=== PATIENT | female | born 1935 | race Caucasian/White ===

== ENCOUNTER 2018-01-17 15:56 | Observation (INO) | payer MEDICARE ==
[2018-01-17 16:21] LABS: BASOPHIL % 0.1 % (0.0-0.4); Basophil (Absolute #) 0.02 (0-0.4); Eosinophil % 0.1 % (0.00-5.0); Eosinophil (Absolute #) 0.01 (0-0.5); Granulocyte Absolute (ANC) 11.98 (1.4-6.9); Granulocytes % 82.2 % (36.0-66.0); Hematocrit 45.4 % (35-47); Hemoglobin 15.4 gm/dl (12.0-16.0); Lymphocyte (Absolute #) 1.86 (1.0-4.6); Lymphocytes % 12.7 % (24.0-44.0); Mean Cell Volume 86.3 fl (78-100); Mean Corpuscular Hemoglobin 29.3 pg (26-32); Mean Corpuscular Hgb Concent. 33.9 g/dl (32-36); Mean Platelet Volume 8.9 fl (6-9.5); Monocyte (Absolute #) 0.72 (0.0-1.3); Monocytes % 4.9 % (0.0-12.0); Platelet Count 362 K/mm3 (150-450); Red Blood Count 5.26 M/mm3 (4.1-5.4); Red Cell Distribution Width 13.3 % (11.5-14.0); White Blood Count 14.6 K/mm3 (4.0-10.5)
--- NOTE | 2018-01-17 16:25 | XRAY ---
Indication: Facial drooping. Left facial tingling/numbness. Multiple contiguous axial images obtained through the head without contrast. Comparison: None Age-appropriate global atrophy and mild periventricular degenerative micro-ischemia bilaterally. Anterior left temporal lobe demonstrates focal 1.8 x 2.5 cm cortical/subcortical hypoattenuation, possible cytotoxic edema. Posterior left parietal lobe near the vertex demonstrates 1 cm extra-axial slightly dense lesion, possible hemangioma. No acute hemorrhage, abnormal extra-axial fluid collection, or mass effect. Fourth ventricle is midline without hydrocephalus. Bony calvarium intact. Mild mucosal thickening of both ethmoid sinuses, right greater than left. Visualized mastoid air cells are clear. Impression: 1. Anterior left temporal lobe focal cortical/subcortical hypoattenuation, possible cytotoxic edema as seen in acute ischemia. MRI may further information. 2. Suspect small left posterior parietal hemangioma. MRI with contrast could confirm. 3. No acute intracranial hemorrhage. 4. Normal aging brain including atrophy and degenerative micro-ischemia. 5. Mild paranasal sinus disease. CTDI 68.51
[2018-01-17 16:33] LABS: ALBUMIN 4.4 g/dL (3.5-5.0); ALKALINE PHOSPHATASE 86 U/L (38-126); ANION GAP 13.5 MEQ/L (5-15); BLOOD UREA NITROGEN 12 mg/dL (7-17); CHLORIDE 102 mmol/L (98-107); Carbon Dioxide 26 mmol/L (22-30); Glucose 154 mg/dL (74-106); Potassium 3.6 mmol/L (3.5-5.1); SGOT/AST 26 U/L (14-36); SGPT/ALT 16 U/L (0-35); SODIUM 138 mmol/L (137-145)
--- NOTE | 2018-01-17 16:39 | ERPHSYRPT ---
- History of Present Illness Time Seen by Provider: 01/17/18 16:24 Source: patient Exam Limitations: no limitations Patient Subjective Stated Complaint: pt was found on floor at home about 0900 or 1000 this morning, she states she was trying to get to bathroom and fell, and states she hit her head, no loc, pt arrived per ambulance Triage Nursing Assessment: pt alert, has facial drooping to right side, loin trimmer equal, oriented, speech slightly slurred, was given was given 2 asa before arrival before arrival Physician History: 82-year-old white female with history of high blood pressure, lung cancer, diabetes type 2, arrives with complaint that the patient had a left facial droop. Patient apparently fell at approximately 9:00 this morning was found by her son about 3:00 noted to have a left facial droop. Patient states she hit her head she initially said she had no neck pain she tells me that she always has neck pain. She had no loss of consciousness. Patient is alert oriented she has slightly slurry speech. She states she is able to move her arms. Initially with a left facial droop on reevaluation patient appears to not have a facial droop she is able to show me her teeth is able to wrinkle her forehead she does have a left pronator drift however she has bilateral loin trimmer 5 over 5 full range of motion of her extremities and she can perform [id number] with both hands. Her daughter states that the patient had a left-sided weakness about a week ago , and was evaluated for this. Patient's daughter also states that the patient was given 2 baby aspirin prior to arrival. Past medical history includes lung cancer, high blood pressure, diabetes type 2. Past surgical history includes upper and middle lobe of the right lung removed, and hysterectomy. Timing/Duration: today (fell at 9:00 remained on floor until son arrived she was onat 3:00 pm and noted facial droop) Severity: mild Modifying Factors: Improves With: nothing Associated Symptoms: No nausea, No vomiting, No abdominal pain, No shortness of breath, No heartburn, No diaphoresis, No cough, No chills, No chest pain, No fever, No headaches, No loss of appetite, No malaise, No rash, No syncope, No seizure, No weakness Allergies/Adverse Reactions: No Known Drug Allergies Allergy (Unverified 01/17/18 16:34) Home Medications: Amlodipine Besylate 5 mg DAILY 01/17/18 [History] Fenofibrate,Micronized 145 mg* [Tricor 145 MG] 145 mg DAILY 01/17/18 [History ] Hx Tetanus, Diphtheria Vaccination/Date Given: No Hx Influenza Vaccination/Date Given: Yes Hx Pneumococcal Vaccination/Date Given: Yes Immunizations Up to Date: No - Review of Systems Constitutional: Other (pain posterior head), No Fever, No Chills Eyes: No Symptoms Ears, Nose, & Throat: No Symptoms, No Ear Pain, No Ear Discharge, No Hearing Changes, No Tinnitus, No Nose Pain, No Nose Congestion, No Nose Discharge, No Sinus Drainage, No Epistaxis, No Mouth Pain, No Mouth Swelling, No Loose Teeth, No Throat Pain, No Throat Swelling, No Hoarse, No Painful Swallowing, No Snoring , No Stridor Respiratory: No Cough, No Dyspnea Cardiac: No Chest Pain, No Edema, No Syncope Abdominal/Gastrointestinal: No Abdominal Pain, No Nausea, No Vomiting, No Diarrhea Genitourinary Symptoms: No Dysuria Musculoskeletal: Neck Pain (patient told nurse no pain in her neck, patient states she always has pain in her neck), No Back Pain Skin: No Rash Neurological: Other (patient noted to have left facial droop by family members, slightly slurry speech) Psychological: No Symptoms Endocrine: No Symptoms All Other Systems: Reviewed and Negative - Past Medical History Pertinent Past Medical History: Yes Neurological History: No Pertinent History Cardiac History: Hypertension Respiratory History: Lung Cancer Endocrine Medical History: No Pertinent History Musculoskeletal History: Osteoarthritis Other Medical History: History of lung CA, two lobes removed from R in 2006. - Past Surgical History Past Surgical History: No - Social History Smoking Status: Never smoker Exposure to second hand smoke: No Drug Use: none Patient Lives Alone: No - Female History Hx Last Menstrual Period: post - Nursing Vital Signs Nursing Vital Signs: Initial Vital Signs Temperature 97.0 F 01/17/18 16:24 Pulse Rate 69 01/17/18 16:24 Respiratory Rate 18 01/17/18 16:24 Blood Pressure 171/81 01/17/18 16:24 O2 Sat by Pulse Oximetry 99 01/17/18 16:24 Pain Scale Pain Intensity 0 - Physical Exam General Appearance: other (well-developed well-nourished white female no acute distress. ) Eye Exam: PERRL/EOMI, eyes nml inspection, other (fundi unremarkable) Ears, Nose, Throat Exam: normal ENT inspection, TMs normal, pharynx normal, moist mucous membranes Neck Exam: normal inspection, non-tender, supple, full range of motion Respiratory Exam: normal breath sounds, lungs clear, No respiratory distress Cardiovascular Exam: regular rate/rhythm, normal heart sounds, normal peripheral pulses Gastrointestinal/Abdomen Exam: soft, normal bowel sounds, No tenderness, No mass Back Exam: normal inspection, normal range of motion, No CVA tenderness, No vertebral tenderness Extremity Exam: normal inspection, normal range of motion, pelvis stable Neurologic Exam: alert, oriented x 3, cooperative, demonstrator electric gas appliances II-XII nml as tested, normal mood/affect, nml cerebellar function, nml station & gait, sensation nml, other (patient with slightly slurry speech, pronator drift on the left, able to perform finger to nose bilaterally, loin trimmer equal 5 over 5, patient able to wrinkle forehead, show me her teeth, left corner mouth pulls down slightly after patient shows me her teeth, patient is alert oriented x 3 full range of motion lower extremities.), No motor deficits Skin Exam: normal color, warm, dry, No rash SpO2 Interpretation: normal (99%) SpO2: 99 Oxygen Delivery: Room Air - Course Nursing assessment & vital signs reviewed: Yes EKG Interpreted by Me: RATE (71just make sure she follobpm), Other (EKG: Sinus arrhythmia, 71 bpm, normal axis, no acute ST or T wave changes noted) - CT Exams Head CT Interpretation: Discussed w/radiologist (head CT: Impression: 1. Anterior left Temporal lobe focal cortical/subcortical hypoattenuation, possible cytotoxic edema as seen in acute ischemia. MRI may further infor 2. Suspect small posterio parietal hemangioma. MRI with contrast c No acute intracranial Normal aging brain including atrophy and degenerative micro-ischemia. 5.mild. paranasal sinus disease) Ordered Tests: Active Orders 24 hr Category Date Time Status Accucheck STAT Care 01/17/18 16:04 Active EKG-ER Only STAT Care 01/17/18 16:04 Active IV Insertion STAT Care 01/17/18 16:04 Active Pulse Oximetry (ED) STAT Care 01/17/18 16:04 Active CERVICAL SPINE (2 OR 3 VIEW) Stat Exams 01/17/18 16:33 Taken HEAD WITHOUT CONTRAST [CT] Stat Exams 01/17/18 15:58 Completed CBC W DIFF Stat Lab 01/17/18 16:19 Completed CMP Stat Lab 01/17/18 16:19 Completed PROTIME WITH INR Stat Lab 01/17/18 16:19 Completed PTT Stat Lab 01/17/18 16:19 Completed Lab/Rad Data: Laboratory Result Diagrams 01/17/18 16:19 01/17/18 16:19 Laboratory Results 01/17/18 01/17/18 01/17/18 Range/Units 16:19 16:19 16:19 WBC 14.6 H (4.0-10.5) K/mm3 RBC 5.26 (4.1-5.4) M/mm3 Hgb 15.4 (12.0-16.0) gm/dl Hct 45.4 (35-47) % MCV 86.3 (78-100) fl MCH 29.3 (26-32) pg MCHC 33.9 (32-36) g/dl RDW 13.3 (11.5-14.0) % Plt Count 362 (150-450) K/mm3 MPV 8.9 (6-9.5) fl Gran % 82.2 H (36.0-66.0) % Eos # (Auto) 0.01 (0-0.5) Absolute Lymphs (auto) 1.86 (1.0-4.6) Absolute Monos (auto) 0.72 (0.0-1.3) Lymphocytes % 12.7 L (24.0-44.0) % Monocytes % 4.9 (0.0-12.0) % Eosinophils % 0.1 (0.00-5.0) % Basophils % 0.1 (0.0-0.4) % Absolute Granulocytes 11.98 H (1.4-6.9) Basophils # 0.02 (0-0.4) PT 11.4 (9.95-12.35) SECONDS INR 0.98 (0.8-3.0) APTT 28.3 (25.3-37.0) SECONDS Sodium 138 (137-145) mmol/L Potassium 3.6 (3.5-5.1) mmol/L Chloride 102 (98-107) mmol/L Carbon Dioxide 26 (22-30) mmol/L Anion Gap 13.5 (5-15) MEQ/L BUN 12 (7-17) mg/dL Creatinine 0.60 (0.52-1.04) mg/dL Estimated GFR > 60.0 ML/MIN Glucose 154 H (74-106) mg/dL Calcium 10.0 (8.4-10.2) mg/dL Total Bilirubin 0.50 (0.2-1.3) mg/dL AST 26 (14-36) U/L ALT 16 (0-35) U/L Alkaline Phosphatase 86 (38-126) U/L Serum Total Protein 8.0 (6.3-8.2) g/dL Albumin 4.4 (3.5-5.0) g/dL - Progress Progress: improved Progress Note: 01/17/18 16:43 This is a 82-year-old white female with history of high blood pressure, diabetes type 2, lung cancer she arrives with complaint of left facial droop, slurred speech. Patient apparently fell at 9:00 this morning she remained on the floor her son arrived and noticed her to have left facial droops slurry speech she gave her 2 baby aspirin. Patient was noted by nurses to have a left facial droop on examination she is able to wrinkle her forehead, she can show me her teeth. She is able to fully lift her lips however when she of return to normal position she appears to have slight pulling down of her left corner of her mouth. Her speech is mildly slurry. She is alert oriented 3. Her loin trimmer are equal 5 over 5. She does have pronator drift on the left. She is able to accomplish finger to nose with both hands. She has musculoskeletal strength intact to the lower extremities sensation is intact to all extremities. GCS is 15. CT of the head has been ordered CBC CMP Accu-Chek have been ordered EKG has been ordered. Telemetry neurology consult has been ordered. Patient was given 162 mg aspirin by her family members prior to arrival. 01/17/18 18:13 Tele neurology consult was obtained with Dr. Raymond. He felt That the patient did not qualify for thrombolytics secondary to duration of time prior to arrival in the emergency room, the patient had a left temporalis hypodensity on CT scan and was felt to of had an acute infarction Dr. Raymond recommended full dose aspirin therapy, admission, and suggested MRI and carotid Dopplers as well as to the echocardiogram. He forwarded a copy of his recommendations and evaluation I contacted Dr. Leeroy Dave of concerning care of this patient to the family and or patient wishing to stay in this hospital, 'Dr. Leeroy Dave of stated that Dr. BELLA Dave was the patient's family physician, I contacted Dr. BELLA Dave he requested that we go ahead and admit the patient to observation with Dr. Leeroy Dave as physician and he will contact her and have her see the patient tomorrow, will order telemetry, go ahead and order aspirin as recommended by Dr. Raymond, MRI and echocardiograms and carotid Dopplers will be ordered by Dr. Leeroy Dave and/or Dr. BELLA Dave. - Departure Time of Disposition: 18:24 Departure Disposition: Observation Clinical Impression: left facial droop, Pronator drift on left CVA (cerebral vascular accident) Qualifiers: CVA mechanism: unspecified Qualified Code(s): I63.9 - Cerebral infarction, unspecified Condition: Fair Critical Care Time: No Referrals: HATTIE DAVE [Primary Care Provider] -
[2018-01-17 16:42] LABS: INR 0.98 (0.8-3.0); PROTIME 11.4 SECONDS (9.95-12.35)
[2018-01-17 16:45] LABS: PTT 28.3 SECONDS (25.3-37.0)
[2018-01-17] MEDS ORDERED: BABY ASPIRIN 81 MG CHEW PO ONE (18:25)
[2018-01-17] MEDS: THERAGRAN MULTIVITAMIN PO SCH (21:57)
[2018-01-17] MEDS: Tricor 145 MG PO SCH (21:57)
[2018-01-17] MEDS: NORVASC 5 MG PO SCH (21:57)
[2018-01-17] MEDS: FISH OIL 1,000 MG CAPSULE PO SCH (21:58)
[2018-01-18] MEDS ORDERED: TYLENOL 325 MG PO PRN (01:06)
[2018-01-18 04:26] VITALS: O2SAT 96
[2018-01-18 05:57] LABS: Hematocrit 42.9 % (35-47); Hemoglobin 14.5 gm/dl (12.0-16.0); Mean Cell Volume 87.7 fl (78-100); Mean Corpuscular Hemoglobin 29.7 pg (26-32); Mean Corpuscular Hgb Concent. 33.8 g/dl (32-36); Mean Platelet Volume 10.2 fl (6-9.5); Red Blood Count 4.89 M/mm3 (4.1-5.4); Red Cell Distribution Width 13.5 % (11.5-14.0); White Blood Count 15.7 K/mm3 (4.0-10.5)
[2018-01-18 06:05] LABS: ALBUMIN 3.8 g/dL (3.5-5.0); ALKALINE PHOSPHATASE 69 U/L (38-126); ANION GAP 12.9 MEQ/L (5-15); BLOOD UREA NITROGEN 12 mg/dL (7-17); CHLORIDE 103 mmol/L (98-107); Calcium 9.9 mg/dL (8.4-10.2); Carbon Dioxide 25 mmol/L (22-30); Creatinine 1 0.56 mg/dL (0.52-1.04); Glucose 177 mg/dL (74-106); Potassium 3.6 mmol/L (3.5-5.1); SGOT/AST 29 U/L (14-36); SGPT/ALT 16 U/L (0-35); SODIUM 137 mmol/L (137-145); Total Protein 7.2 g/dL (6.3-8.2)
[2018-01-18 07:35] LABS: BAND 5 % (0.0-2.0); Lymphocytes 12 % (24-44); Metamyelocyte 1 %; Monocyte 3 % (0.0-12.0); Neutrophils 79 % (36.0-66.0); Total Cells Counted 100
[2018-01-18 07:36] LABS: Platelet Estimate NORMAL (NORMAL)
[2018-01-18 07:37] LABS: Granulocyte Absolute (ANC) 13.19 (1.4-6.9)
[2018-01-18 07:39] LABS: Platelet Count 315 K/mm3 (150-450)
--- NOTE | 2018-01-18 08:43 | XRAY ---
Indication: Head injury following fall. Comparison: None AP/crosstable lateral, and open-mouth odontoid view demonstrates normal alignment with C4-C5-C6 fusion surgery with intact anterior plate/screws and intervertebral spacers. Mild multilevel bilateral degenerative facet arthropathy. No other bony, articular, or soft tissue abnormalities.
[2018-01-18] MEDS ORDERED: Valium 5 MG PO ONE (08:56)
[2018-01-18 09:15] LABS: Appearance SLIGHTLY CLOUDY (CLEAR); Bacteria RARE /HPF (NEGATIVE); Bilirubin NEGATIVE (NEGATIVE); Blood NEGATIVE Ery/ul (0-5); Glucose 50 mg/dL (NEGATIVE); Ketones NEGATIVE (NEGATIVE); Leukocyte Esterase NEGATIVE (NEGATIVE); Mucus SLIGHT /HPF (NEGATIVE); Nitrite NEGATIVE (NEGATIVE); Protein,Urine Dip NEGATIVE (Negative); Specific Gravity 1.017 (1.005-1.025); Urobilinogen NEGATIVE mg/dL (0-1)
[2018-01-18] MEDS ORDERED: ENOXAPARIN SODIUM SQ SCH (10:00)
[2018-01-18] MEDS ORDERED: PLAVIX 75 MG Tablet PO SCH (10:00)
[2018-01-18] MEDS ORDERED: Lopressor 25MG Tab PO SCH (10:00)
[2018-01-18] MEDS: FISH OIL 1,000 MG CAPSULE PO SCH (11:02)
[2018-01-18] MEDS: Tricor 145 MG PO SCH (11:03)
[2018-01-18] MEDS: THERAGRAN MULTIVITAMIN PO SCH (11:03)
[2018-01-18] MEDS: NORVASC 5 MG PO SCH (11:03)
[2018-01-18 11:48] VITALS: BP 154/68; PULSE 76
--- NOTE | 2018-01-18 12:43 | XRAY ---
Indication: Weakness. Left facial numbness/tingling. Status post fall. Abnormal CT head. Sagittal, coronal, and axial MRI brain was performed using pre-and post T1, T2, FLAIR, diffusion, and ADC sequences. 12 cc Magnevist contrast used. Comparison: None There is age-appropriate global atrophy and moderate periventricular degenerative micro-ischemia signal bilaterally. Tiny scattered subcortical restricted signal seen in the right occipital lobe favoring acute micro-ischemia. 2 additional foci of curvilinear restricted signal seen in the right thalamus, larger measuring 7 x 20 mm favoring acute ischemia. Tiny remote lacunar infarct in the left cerebral peduncle. There is a 1.8 x 2.4 cm arachnoid cyst in the anterior left middle fossa. No acute intracranial hemorrhage, abnormal extra-axial fluid collection, or mass effect. Following gadolinium, there is a 9 mm posterior left parietal enhancing meningioma. No other abnormal enhancing intra-or extra-axial mass. Fourth ventricle is midline without hydrocephalus. 7/8 cranial nerve complex bilaterally symmetric. Normal flow void signal within the major intracerebral circulation. Normal appearing craniocervical junction and sella turcica. Mild mucosal thickening of right ethmoid sinus. Impression: 1. Small acute ischemia in the right thalamus and tiny scattered acute micro-ischemia in the right occipital lobe as detailed. No acute hemorrhage/mass effect. 2. Aging brain including atrophy and degenerative micro-ischemia. 3. Incidental tiny left cerebral peduncle remote appearing lacunar infarct, small left posterior parietal meningioma, left middle fossa arachnoid cyst, and minimal paranasal sinus disease.
--- NOTE | 2018-01-18 13:03 | PCM.SSS ---
History of Present Illness - Chief Complaint Chief Complaint: CVA History of Present Illness: 82 year-old white female with history of high blood pressure, lung cancer, diabetes type 2, arrives with complaint that the patient had a left facial droop. Patient apparently fell at approximately 9:00 this morning was found by her son about 3:00 noted to have a left facial droop. Patient states she hit her head she initially said she had no neck pain she tells me that she always has neck pain. She had no loss of consciousness. Patient is alert oriented she has slightly slurry speech. She states she is able to move her arms. Initially with a left facial droop on reevaluation patient appears to not have a facial droop she is able to show me her teeth is able to wrinkle her forehead she does have a left pronator drift however she has bilateral neuropsychology medical consultant 5 over 5 full range of motion of her extremities and she can perform [id number] with both hands. Her daughter states that the patient had a left-sided weakness about a week ago , and was evaluated for this. Patient's daughter also states that the patient was given 2 baby aspirin prior to arrival. Past medical history includes lung cancer, high blood pressure, diabetes type 2. Past surgical history includes upper and middle lobe of the right lung removed, and hysterectomy. - Review of Systems Constitutional: No Fever, No Chills Eyes: No Symptoms Ears, Nose, & Throat: No Symptoms Respiratory: No Cough, No Short Of Breath Cardiac: No Chest Pain, No Edema, No Syncope Abdominal/Gastrointestinal: No Abdominal Pain, No Nausea, No Vomiting, No Diarrhea Genitourinary Symptoms: No Dysuria Musculoskeletal: No Back Pain, No Neck Pain Skin: No Rash Neurological: Focal Weakness, No Dizziness, No Sensory Changes Psychological: No Symptoms Endocrine: No Symptoms Hematologic/Lymphatic: No Symptoms Immunological/Allergic: No Symptoms Medications & Allergies Home Medications: Home Medication List Amlodipine Besylate 5 mg DAILY 01/17/18 [History Confirmed 01/17/18] Fenofibrate,Micronized 145 mg* [Tricor 145 MG] 145 mg DAILY 01/17/18 [ History Confirmed 01/17/18] Multivit with Calcium,Iron,Min [Multiple Vitamins For Women] 1 tab PO DAILY [History Confirmed 01/17/18] Energy-3 Fatty Acids/Fish Oil [Fish Oil 1,000 mg Capsule] 1,000 mg PO DAILY 01/17 [History Confirmed 01/17/18] Clopidogrel Bisulfate 75 mg [PLAVIX 75 MG Tablet] 75 mg PO DAILY 30 Days # 30 tablet 01/18/18 [Rx] Allergies/Adverse Reactions: Allergies Allergy/AdvReac Type Severity Reaction Status Date / Time No Known Drug Allergies Allergy Unverified 01/17/18 16:34 - Past Medical History Past Medical History: Yes Neurological History: No Pertinent History ENT History: Other Cardiac History: High Cholesterol, Hypertension Respiratory History: Lung Cancer Endocrine Medical History: No Pertinent History Musculoskelatal History: Arthritis, Osteoarthritis GI Medical History: Other History: No Pertinent History Pyscho-Social History: No Pertinent History Reproductive Disorders: Other Comment: History of lung CA, two lobes removed from R in 2006. Seeing a Eye Dr Byron Owens in [facility] Treatment that caused a whole, Had foot of Colon removed inbetween [id number] Hysterectomy in 1976, Hip Replacement in August 2017 - Female History Hx Last Menstrual Period: post Are you now?: No - Past Surgical History Past Surgical History: No Neuro Surgical History: No Pertinent History Cardiac History: No Pertinent History Respiratory Surgery: Lobectomy GI Surgical History: Colon Resection Genitourinary Surgical Hx: No Pertinent History Musculskeletal Surgical Hx: Orthopedic Surgery, Other Female Surgical History: Hysterectomy Other Surgical History: History of lung CA, two lobes removed from R in 2006. Seeing a Dr Byron Owens in [facility] Treatment that caused a whole, Had foot of Colon removed inbetween [id number] Hysterectomy in 1976, Hip Replacement in August 2017. Metal in Left Ankle - Social History Smoking Status: Former smoker How long have you smoked: 1 month Exposure to second hand smoke: No Alcohol: None Drug Use: none - Physical Exam Vital Signs: Vital Signs - 24 hr Temp Pulse Resp BP Pulse Ox 01/18/18 12:00 17 01/18/18 11:47 97.6 F 76 21 154/68 96 01/18/18 07:41 98.3 F 81 20 143/66 96 01/18/18 07:38 16 01/18/18 04:25 98.7 F 72 16 139/60 96 01/18/18 04:00 16 01/18/18 00:02 98.5 F 87 15 161/60 95 01/18/18 00:00 15 01/17/18 20:45 98.2 F 69 18 187/78 99 01/17/18 19:48 98.2 F 69 18 187/79 99 01/17/18 18:45 69 16 159/68 69 L 01/17/18 18:25 99 01/17/18 18:05 64 16 150/70 97 01/17/18 17:43 74 18 158/63 100 01/17/18 16:56 72 16 170/84 99 01/17/18 16:24 97.0 F 69 18 171/81 97 General Appearance: no apparent distress, alert Neurologic Exam: alert, oriented x 3, cooperative, motor weakness, No motor deficits Eye Exam: PERRL/EOMI, eyes nml inspection Ears, Nose, Throat Exam: normal ENT inspection, TMs normal, pharynx normal, moist mucous membranes Neck Exam: normal inspection, non-tender, supple, full range of motion Respiratory Exam: normal breath sounds, lungs clear, No respiratory distress Cardiovascular Exam: regular rate/rhythm, normal heart sounds, normal peripheral pulses Gastrointestinal/Abdomen Exam: soft, normal bowel sounds, No tenderness, No mass Back Exam: normal inspection, normal range of motion, No CVA tenderness, No vertebral tenderness Extremity Exam: normal inspection, normal range of motion, pelvis stable Skin Exam: normal color, warm, dry, No rash Lymphatic Exam: No adenopathy Results - Labs Lab/Micro Results: Accuchecks Accucheck Value: 141 Lab Results-Last 24 Hours 01/17/18 01/17/18 01/17/18 Range/Units 16:19 16:19 16:19 WBC 14.6 H (4.0-10.5) K/mm3 RBC 5.26 (4.1-5.4) M/mm3 Hgb 15.4 (12.0-16.0) gm/dl Hct 45.4 (35-47) % MCV 86.3 (78-100) fl MCH 29.3 (26-32) pg MCHC 33.9 (32-36) g/dl RDW 13.3 (11.5-14.0) % Plt Count 362 (150-450) K/mm3 MPV 8.9 (6-9.5) fl Gran % 82.2 H (36.0-66.0) % Eos # (Auto) 0.01 (0-0.5) Absolute Lymphs (auto) 1.86 (1.0-4.6) Absolute Monos (auto) 0.72 (0.0-1.3) Lymphocytes % 12.7 L (24.0-44.0) % Monocytes % 4.9 (0.0-12.0) % Eosinophils % 0.1 (0.00-5.0) % Basophils % 0.1 (0.0-0.4) % Absolute Granulocytes 11.98 H (1.4-6.9) Segmented Neutrophils (36.0-66.0) % Band Neutrophils (0.0-2.0) % Lymphocytes (Manual) (24-44) % Monocytes (Manual) (0.0-12.0) % Basophils # 0.02 (0-0.4) Metamyelocytes % Platelet Estimate (NORMAL) RBC Morphology PT 11.4 (9.95-12.35) SECONDS INR 0.98 (0.8-3.0) APTT 28.3 (25.3-37.0) SECONDS Sodium 138 (137-145) mmol/L Potassium 3.6 (3.5-5.1) mmol/L Chloride 102 (98-107) mmol/L Carbon Dioxide 26 (22-30) mmol/L Anion Gap 13.5 (5-15) MEQ/L BUN 12 (7-17) mg/dL Creatinine 0.60 (0.52-1.04) mg/dL Estimated GFR > 60.0 ML/MIN Glucose 154 H (74-106) mg/dL Calcium 10.0 (8.4-10.2) mg/dL Total Bilirubin 0.50 (0.2-1.3) mg/dL AST 26 (14-36) U/L ALT 16 (0-35) U/L Alkaline Phosphatase 86 (38-126) U/L Serum Total Protein 8.0 (6.3-8.2) g/dL Albumin 4.4 (3.5-5.0) g/dL Urine Color (YELLOW) Urine Appearance (CLEAR) Urine pH (5-6) Ur Specific Dunellen (1.005-1.025) Urine Protein (Negative) Urine Ketones (NEGATIVE) Urine Blood (0-5) Kenrick/ul Urine Nitrite (NEGATIVE) Urine Bilirubin (NEGATIVE) Urine Urobilinogen (0-1) mg/dL Ur Leukocyte Esterase (NEGATIVE) Urine WBC (Auto) (0-5) /HPF Urine RBC (Auto) (0-2) /HPF U Hyaline Cast (Auto) (0-2) /LPF U Epithel Cells (Auto) (FEW) /HPF Urine Bacteria (Auto) (NEGATIVE) /HPF Urine Mucus (Auto) (NEGATIVE) /HPF Urine Culture Reflexed (NO) Urine Glucose (NEGATIVE) mg/dL 01/18/18 01/18/18 01/18/18 Range/Units 05:15 05:15 07:50 WBC 15.7 H (4.0-10.5) K/mm3 RBC 4.89 (4.1-5.4) M/mm3 Hgb 14.5 (12.0-16.0) gm/dl Hct 42.9 (35-47) % MCV 87.7 (78-100) fl MCH 29.7 (26-32) pg MCHC 33.8 (32-36) g/dl RDW 13.5 (11.5-14.0) % Plt Count 315 (150-450) K/mm3 MPV 10.2 H (6-9.5) fl Gran % (36.0-66.0) % Eos # (Auto) (0-0.5) Absolute Lymphs (auto) (1.0-4.6) Absolute Monos (auto) (0.0-1.3) Lymphocytes % (24.0-44.0) % Monocytes % (0.0-12.0) % Eosinophils % (0.00-5.0) % Basophils % (0.0-0.4) % Absolute Granulocytes 13.19 H (1.4-6.9) Segmented Neutrophils 79 H (36.0-66.0) % Band Neutrophils 5 H (0.0-2.0) % Lymphocytes (Manual) 12 L (24-44) % Monocytes (Manual) 3 (0.0-12.0) % Basophils # (0-0.4) Metamyelocytes 1 % Platelet Estimate NORMAL (NORMAL) RBC Morphology NORMAL PT (9.95-12.35) SECONDS INR (0.8-3.0) APTT (25.3-37.0) SECONDS Sodium 137 (137-145) mmol/L Potassium 3.6 (3.5-5.1) mmol/L Chloride 103 (98-107) mmol/L Carbon Dioxide 25 (22-30) mmol/L Anion Gap 12.9 (5-15) MEQ/L BUN 12 (7-17) mg/dL Creatinine 0.56 (0.52-1.04) mg/dL Estimated GFR > 60.0 ML/MIN Glucose 177 H (74-106) mg/dL Calcium 9.9 (8.4-10.2) mg/dL Total Bilirubin 0.50 (0.2-1.3) mg/dL AST 29 (14-36) U/L ALT 16 (0-35) U/L Alkaline Phosphatase 69 (38-126) U/L Serum Total Protein 7.2 (6.3-8.2) g/dL Albumin 3.8 (3.5-5.0) g/dL Urine Color YELLOW (YELLOW) Urine Appearance SLIGHTLY CLOUDY (CLEAR) Urine pH 6.0 (5-6) Ur Specific Dunellen 1.017 (1.005-1.025) Urine Protein NEGATIVE (Negative) Urine Ketones NEGATIVE (NEGATIVE) Urine Blood NEGATIVE (0-5) Kenrick/ul Urine Nitrite NEGATIVE (NEGATIVE) Urine Bilirubin NEGATIVE (NEGATIVE) Urine Urobilinogen NEGATIVE (0-1) mg/dL Ur Leukocyte Esterase NEGATIVE (NEGATIVE) Urine WBC (Auto) 6-10 (0-5) /HPF Urine RBC (Auto) NONE (0-2) /HPF U Hyaline Cast (Auto) 3-5 (0-2) /LPF U Epithel Cells (Auto) NONE (FEW) /HPF Urine Bacteria (Auto) RARE (NEGATIVE) /HPF Urine Mucus (Auto) SLIGHT (NEGATIVE) /HPF Urine Culture Reflexed NO (NO) Urine Glucose 50 (NEGATIVE) mg/dL Accuchecks Accucheck Value: 141 - Radiology Impressions Radiology Exams & Impressions: Radiology Procedures Category Date Time Status CAROTID BILATERAL [US] Routine Exams 01/18/18 Ordered CERVICAL SPINE (2 OR 3 VIEW) Stat Exams 01/17/18 16:33 Completed ECHO W/2D AND DOPPLER [US] Routine Exams 01/18/18 Ordered HEAD WITHOUT CONTRAST [CT] Stat Exams 01/17/18 15:58 Completed MRI BRAIN W & W/O CONTRAST [MRI] Routine Exams 01/18/18 12:07 Completed Assessment/Plan (1) CVA (cerebral vascular accident) Current Visit: Yes Status: Acute Qualifiers: CVA mechanism: unspecified Qualified Code(s): I63.9 - Cerebral infarction, unspecified Code(s): I63.9 - CEREBRAL INFARCTION, UNSPECIFIED Hospital Summary - Hospital Course Hospital Course: Last Vital Signs Temp 97.6 F 01/18/18 11:47 Pulse 76 01/18/18 11:47 Resp 17 01/18/18 12:00 BP 154/68 01/18/18 11:47 Pulse Ox 96 01/18/18 11:47 Allergies No Known Drug Allergies Allergy (Unverified 01/17/18 16:34) Active Medications Acetaminophen (Tylenol 325 Mg) 650 mg PO Q6H PRN PRN PRN Reason: PAIN AND/OR FEVER Stop: 02/17/18 01:05 Last Admin: 01/18/18 01:08 Dose: 650 mg Amlodipine Besylate (Norvasc 5 Mg) 5 mg PO QAM [facility] Stop: 02/16/18 21:59 Last Admin: 01/18/18 11:03 Dose: 5 mg Aspirin (Ecotrin 325 Mg) 325 mg PO HS [facility] Stop: 02/17/18 18:25 Clopidogrel Bisulfate (Plavix 75 Mg Tablet) 75 mg PO DAILY [facility] Stop: 02/17/18 09:59 Last Admin: 01/18/18 11:06 Dose: 75 mg Enoxaparin Sodium (Enoxaparin Sodium) 40 mg SQ DAILY [facility] Stop: 02/17/18 09:59 Last Admin: 01/18/18 11:01 Dose: 40 mg Fenofibrate (Tricor 145 Mg) 145 mg PO DAILY [facility] Stop: 02/16/18 21:59 Last Admin: 01/18/18 11:03 Dose: 145 mg Fish Oil (Fish Oil 1,000 Mg Capsule) 1,000 mg PO DAILY [facility] Stop: 02/16/18 21:59 Last Admin: 01/18/18 11:02 Dose: 1,000 mg Metoprolol Tartrate (Lopressor 25mg Tab) 25 mg PO BID [facility] Stop: 02/17/18 09:59 Last Admin: 01/18/18 11:06 Dose: 25 mg Multivitamins Therapeutic (Theragran Multivitamin) 1 tab PO QAM [facility] Stop: 02/16/18 21:59 Last Admin: 01/18/18 11:03 Dose: 1 tab Intake & Output 01/18/18 01/19/18 11:59 11:59 Intake Total 640 60 Output Total 525 150 Balance 115 -90 Weight 73 kg Orders 01/17/18 21:39 System Support Analyst/Discharge Plan OT Screen per Nursing Assess 01/17/18 22:00 SCD's [Sequential Compression Device] Q6H Amlodipine Besylate 5 mg [Norvasc 5 mg] 5 mg PO QAM Fenofibrate,Micronized 145 mg* [Tricor 145 MG] 145 mg PO DAILY Multivitamins,Therapeutic Tab* [Theragran Multivitamin] 1 tab PO QAM Energy-3 Fatty Acids/Fish Oil [Fish Oil 1,000 mg Capsule] 1,000 mg PO DAILY 01/18/18 01:06 Acetaminophen 325 mg [Tylenol 325 mg] 650 mg PO Q6H PRN PRN 01/18/18 08:57 PT Eval & Treat (MD Order) ROUTINE 01/18/18 10:00 Clopidogrel Bisulfate 75 mg [PLAVIX 75 MG Tablet] 75 mg PO DAILY Enoxaparin Sodium [Enoxaparin Sodium] 40 mg SQ DAILY Metoprolol Tartrate 25 mg [Lopressor 25MG Tab] 25 mg PO BID 01/18/18 Breakfast Regular Diet Lab Tests 01/17/18 01/17/18 01/17/18 16:19 16:19 16:19 WBC 14.6 H RBC 5.26 Hgb 15.4 Hct 45.4 MCV 86.3 MCH 29.3 MCHC 33.9 RDW 13.3 Plt Count 362 MPV 8.9 Gran % 82.2 H Eos # (Auto) 0.01 Absolute Lymphs (auto) 1.86 Absolute Monos (auto) 0.72 Lymphocytes % 12.7 L Monocytes % 4.9 Eosinophils % 0.1 Basophils % 0.1 Absolute Granulocytes 11.98 H Segmented Neutrophils Band Neutrophils Lymphocytes (Manual) Monocytes (Manual) Basophils # 0.02 Metamyelocytes Platelet Estimate RBC Morphology PT 11.4 INR 0.98 APTT 28.3 Sodium 138 Potassium 3.6 Chloride 102 Carbon Dioxide 26 Anion Gap 13.5 BUN 12 Creatinine 0.60 Estimated GFR > 60.0 Glucose 154 H Calcium 10.0 Total Bilirubin 0.50 AST 26 ALT 16 Alkaline Phosphatase 86 Serum Total Protein 8.0 Albumin 4.4 Urine Color Urine Appearance Urine pH Ur Specific Dunellen Urine Protein Urine Ketones Urine Blood Urine Nitrite Urine Bilirubin Urine Urobilinogen Ur Leukocyte Esterase Urine WBC (Auto) Urine RBC (Auto) U Hyaline Cast (Auto) U Epithel Cells (Auto) Urine Bacteria (Auto) Urine Mucus (Auto) Urine Culture Reflexed Urine Glucose 01/18/18 01/18/18 01/18/18 05:15 05:15 07:50 WBC 15.7 H RBC 4.89 Hgb 14.5 Hct 42.9 MCV 87.7 MCH 29.7 MCHC 33.8 RDW 13.5 Plt Count 315 MPV 10.2 H Gran % Eos # (Auto) Absolute Lymphs (auto) Absolute Monos (auto) Lymphocytes % Monocytes % Eosinophils % Basophils % Absolute Granulocytes 13.19 H Segmented Neutrophils 79 H Band Neutrophils 5 H Lymphocytes (Manual) 12 L Monocytes (Manual) 3 Basophils # Metamyelocytes 1 Platelet Estimate NORMAL RBC Morphology NORMAL PT INR APTT Sodium 137 Potassium 3.6 Chloride 103 Carbon Dioxide 25 Anion Gap 12.9 BUN 12 Creatinine 0.56 Estimated GFR > 60.0 Glucose 177 H Calcium 9.9 Total Bilirubin 0.50 AST 29 ALT 16 Alkaline Phosphatase 69 Serum Total Protein 7.2 Albumin 3.8 Urine Color YELLOW Urine Appearance SLIGHTLY CLOUDY Urine pH 6.0 Ur Specific Dunellen 1.017 Urine Protein NEGATIVE Urine Ketones NEGATIVE Urine Blood NEGATIVE Urine Nitrite NEGATIVE Urine Bilirubin NEGATIVE Urine Urobilinogen NEGATIVE Ur Leukocyte Esterase NEGATIVE Urine WBC (Auto) 6-10 Urine RBC (Auto) NONE U Hyaline Cast (Auto) 3-5 U Epithel Cells (Auto) NONE Urine Bacteria (Auto) RARE Urine Mucus (Auto) SLIGHT Urine Culture Reflexed NO Urine Glucose 50 - Vitals & Intake/Output Vital Signs: Vital Signs Temperature 97.6 F 01/18/18 11:47 Pulse Rate 76 01/18/18 11:47 Respiratory Rate 17 01/18/18 12:00 Blood Pressure 154/68 01/18/18 11:47 O2 Sat by Pulse Oximetry 96 01/18/18 11:47 Intake & Output: Intake & Output 01/16/18 01/17/18 01/18/18 01/19/18 11:59 11:59 11:59 11:59 Intake Total 640 60 Output Total 525 150 Balance 115 -90 Weight 73 kg - Lab Result Diagrams: 01/18/18 05:15 01/18/18 05:15 Lab Results-Last 24 Hrs: Accuchecks Accucheck Value: 141 Lab Results-Last 24 Hours 01/17/18 01/17/18 01/17/18 Range/Units 16:19 16:19 16:19 WBC 14.6 H (4.0-10.5) K/mm3 RBC 5.26 (4.1-5.4) M/mm3 Hgb 15.4 (12.0-16.0) gm/dl Hct 45.4 (35-47) % MCV 86.3 (78-100) fl MCH 29.3 (26-32) pg MCHC 33.9 (32-36) g/dl RDW 13.3 (11.5-14.0) % Plt Count 362 (150-450) K/mm3 MPV 8.9 (6-9.5) fl Gran % 82.2 H (36.0-66.0) % Eos # (Auto) 0.01 (0-0.5) Absolute Lymphs (auto) 1.86 (1.0-4.6) Absolute Monos (auto) 0.72 (0.0-1.3) Lymphocytes % 12.7 L (24.0-44.0) % Monocytes % 4.9 (0.0-12.0) % Eosinophils % 0.1 (0.00-5.0) % Basophils % 0.1 (0.0-0.4) % Absolute Granulocytes 11.98 H (1.4-6.9) Segmented Neutrophils (36.0-66.0) % Band Neutrophils (0.0-2.0) % Lymphocytes (Manual) (24-44) % Monocytes (Manual) (0.0-12.0) % Basophils # 0.02 (0-0.4) Metamyelocytes % Platelet Estimate (NORMAL) RBC Morphology PT 11.4 (9.95-12.35) SECONDS INR 0.98 (0.8-3.0) APTT 28.3 (25.3-37.0) SECONDS Sodium 138 (137-145) mmol/L Potassium 3.6 (3.5-5.1) mmol/L Chloride 102 (98-107) mmol/L Carbon Dioxide 26 (22-30) mmol/L Anion Gap 13.5 (5-15) MEQ/L BUN 12 (7-17) mg/dL Creatinine 0.60 (0.52-1.04) mg/dL Estimated GFR > 60.0 ML/MIN Glucose 154 H (74-106) mg/dL Calcium 10.0 (8.4-10.2) mg/dL Total Bilirubin 0.50 (0.2-1.3) mg/dL AST 26 (14-36) U/L ALT 16 (0-35) U/L Alkaline Phosphatase 86 (38-126) U/L Serum Total Protein 8.0 (6.3-8.2) g/dL Albumin 4.4 (3.5-5.0) g/dL Urine Color (YELLOW) Urine Appearance (CLEAR) Urine pH (5-6) Ur Specific Dunellen (1.005-1.025) Urine Protein (Negative) Urine Ketones (NEGATIVE) Urine Blood (0-5) Kenrick/ul Urine Nitrite (NEGATIVE) Urine Bilirubin (NEGATIVE) Urine Urobilinogen (0-1) mg/dL Ur Leukocyte Esterase (NEGATIVE) Urine WBC (Auto) (0-5) /HPF Urine RBC (Auto) (0-2) /HPF U Hyaline Cast (Auto) (0-2) /LPF U Epithel Cells (Auto) (FEW) /HPF Urine Bacteria (Auto) (NEGATIVE) /HPF Urine Mucus (Auto) (NEGATIVE) /HPF Urine Culture Reflexed (NO) Urine Glucose (NEGATIVE) mg/dL 01/18/18 01/18/18 01/18/18 Range/Units 05:15 05:15 07:50 WBC 15.7 H (4.0-10.5) K/mm3 RBC 4.89 (4.1-5.4) M/mm3 Hgb 14.5 (12.0-16.0) gm/dl Hct 42.9 (35-47) % MCV 87.7 (78-100) fl MCH 29.7 (26-32) pg MCHC 33.8 (32-36) g/dl RDW 13.5 (11.5-14.0) % Plt Count 315 (150-450) K/mm3 MPV 10.2 H (6-9.5) fl Gran % (36.0-66.0) % Eos # (Auto) (0-0.5) Absolute Lymphs (auto) (1.0-4.6) Absolute Monos (auto) (0.0-1.3) Lymphocytes % (24.0-44.0) % Monocytes % (0.0-12.0) % Eosinophils % (0.00-5.0) % Basophils % (0.0-0.4) % Absolute Granulocytes 13.19 H (1.4-6.9) Segmented Neutrophils 79 H (36.0-66.0) % Band Neutrophils 5 H (0.0-2.0) % Lymphocytes (Manual) 12 L (24-44) % Monocytes (Manual) 3 (0.0-12.0) % Basophils # (0-0.4) Metamyelocytes 1 % Platelet Estimate NORMAL (NORMAL) RBC Morphology NORMAL PT (9.95-12.35) SECONDS INR (0.8-3.0) APTT (25.3-37.0) SECONDS Sodium 137 (137-145) mmol/L Potassium 3.6 (3.5-5.1) mmol/L Chloride 103 (98-107) mmol/L Carbon Dioxide 25 (22-30) mmol/L Anion Gap 12.9 (5-15) MEQ/L BUN 12 (7-17) mg/dL Creatinine 0.56 (0.52-1.04) mg/dL Estimated GFR > 60.0 ML/MIN Glucose 177 H (74-106) mg/dL Calcium 9.9 (8.4-10.2) mg/dL Total Bilirubin 0.50 (0.2-1.3) mg/dL AST 29 (14-36) U/L ALT 16 (0-35) U/L Alkaline Phosphatase 69 (38-126) U/L Serum Total Protein 7.2 (6.3-8.2) g/dL Albumin 3.8 (3.5-5.0) g/dL Urine Color YELLOW (YELLOW) Urine Appearance SLIGHTLY CLOUDY (CLEAR) Urine pH 6.0 (5-6) Ur Specific Dunellen 1.017 (1.005-1.025) Urine Protein NEGATIVE (Negative) Urine Ketones NEGATIVE (NEGATIVE) Urine Blood NEGATIVE (0-5) Kenrick/ul Urine Nitrite NEGATIVE (NEGATIVE) Urine Bilirubin NEGATIVE (NEGATIVE) Urine Urobilinogen NEGATIVE (0-1) mg/dL Ur Leukocyte Esterase NEGATIVE (NEGATIVE) Urine WBC (Auto) 6-10 (0-5) /HPF Urine RBC (Auto) NONE (0-2) /HPF U Hyaline Cast (Auto) 3-5 (0-2) /LPF U Epithel Cells (Auto) NONE (FEW) /HPF Urine Bacteria (Auto) RARE (NEGATIVE) /HPF Urine Mucus (Auto) SLIGHT (NEGATIVE) /HPF Urine Culture Reflexed NO (NO) Urine Glucose 50 (NEGATIVE) mg/dL Micro Results-Entire Visit: Accuchecks Accucheck Value: 141 - Radiology Exams Ordered Rad Exams-Entire Visit: Radiology Procedures Category Date Time Status CAROTID BILATERAL [US] Routine Exams 01/18/18 Ordered CERVICAL SPINE (2 OR 3 VIEW) Stat Exams 01/17/18 16:33 Completed ECHO W/2D AND DOPPLER [US] Routine Exams 01/18/18 Ordered HEAD WITHOUT CONTRAST [CT] Stat Exams 01/17/18 15:58 Completed MRI BRAIN W & W/O CONTRAST [MRI] Routine Exams 01/18/18 12:07 Completed MRI/MRI BRAIN W & W/O CONTRAST Impression: 1. Small acute ischemia in the right thalamus and tiny scattered acute micro-ischemia in the right occipital lobe as detailed. No acute hemorrhage/mass effect. 2. Aging brain including atrophy and degenerative micro-ischemia. 3. Incidental tiny left cerebral peduncle remote appearing lacunar infarct, small left posterior parietal meningioma, left middle fossa arachnoid cyst, and minimal paranasal sinus disease. - Procedures and Test Procedures and Tests throughout Hospitalization: Therapy Orders & Screens 01/17/18 21:39 OT Screen per Nursing Assess Comment: Protocol Order Physician Instructions: Greater than 3 points order OT Admission Screening Reason For Exam: Triggered on Admission Diagnosis: CVA Open Wound/Cellutlitis/Pressure Ulcers: No Acute Fx/ORIF/Change in wt bearing status: No Severe MUSCULOSKELETAL pain: No ADL Dysfunction: No Acute CVA w/Hemiparesis/Hemiplegia: Yes Decreased Functional Mobility/Strength: No Sprain/Strain: No Acute Post-op Mobility Dysfunction: No Total Points: 5 PT Screen per Nursing Assess Comment: Protocol Order Physician Instructions: Greater than 3 points order PT Admission Screenin Reason For Exam: Triggered on Admission Diagnosis: CVA Open Wound/Cellutlitis/Pressure Ulcers: No Acute Fx/ORIF/Change in wt bearing status: No Severe MUSCULOSKELETAL pain: No ADL Dysfunction: No Acute CVA w/Hemiparesis/Hemiplegia: Yes Decreased Functional Mobility/Strength: No Sprain/Strain: No Acute Post-op Mobility Dysfunction: No Total Points: 5 01/18/18 08:57 PT Eval & Treat (MD Order) ROUTINE Reason for Eval:: left side weakness Diagnosis: CVA - Discharge Discharge Date: 01/18/18 Disposition: Home, Self-Care Condition: Stable Prescriptions: New Clopidogrel Bisulfate 75 mg [PLAVIX 75 MG Tablet] 75 mg PO DAILY 30 Days #30 tablet Continue Fenofibrate,Micronized 145 mg* [Tricor 145 MG] 145 mg DAILY Amlodipine Besylate 5 mg DAILY Energy-3 Fatty Acids/Fish Oil [Fish Oil 1,000 mg Capsule] 1,000 mg PO DAILY Multivit with Calcium,Iron,Min [Multiple Vitamins For Women] 1 tab PO DAILY Additional Instructions: [facility] WILL CONTACT YOU TO ARRANGE YOUR OUTPATIENT PHYSICAL AND OCCUPATIONAL THERAPY. IF THEY DO NOT CONTACT YOU WITHIN 24 HOURS OF YOUR DEPARTURE, CALL THEM AT [phone] Follow up with: XENIA DAVE [ACTIVE STAFF] - 01/21/18 3:00 pm (at [place] with )
--- NOTE | 2018-01-18 15:24 | XRAY ---
Indication: CVA. Two-dimensional sonogram and color Doppler imaging of the carotid arteries of the neck performed. Comparison: None Examination of the right carotid circulation demonstrates minimal bulb intimal thickening. No focal arteriosclerotic plaquing, critical stenosis, or obstruction. PSV of the CCA is 65 cm/s. PSV of the ICA is 57 cm/s. ICA/CCA ratio is 1.1. Normal antegrade vertebral artery flow. Examination of the left carotid circulation also widely patent with minimal intimal thickening. Distal internal carotid artery is tortuous. PSV of the CCA is 59 cm/s. PSV of the ICA is 51 cm/s. ICA/CCA ratio 0.9. Normal antegrade vertebral artery flow. Impression: Minimal bilateral carotid bulb intimal thickening. Velocity measurements and ratios are negative for hemodynamically significant flow-limiting stenosis.
[2018-01-18] MEDS ORDERED: Ecotrin 325 MG PO SCH (18:26)
--- NOTE | 2018-01-21 09:48 | ECHO ---
Transthoracic echocardiographic examination and color Doppler was done on 01/18/2018. INDICATION: Stroke, hypertension, hyperlipidemia. IMPRESSION: 1) NO REGIONAL WALL MOTION ABNORMALITY. ESTIMATED GLOBAL LEFT VENTRICULAR EJECTION FRACTION OF AROUND 60%. 2) MODERATE AORTIC REGURGITATION. 3) MILD TO MODERATE MITRAL REGURGITATION. RIGHT VENTRICULAR SYSTOLIC PRESSURE OF 34 MM OF MERCURY. 4) LEFT VENTRICULAR HYPERTROPHY 5) LEFT ATRIAL ENLARGEMENT. The left ventricle is visualized and demonstrated adequate motion of all the segments. Estimated global left ventricular ejection fraction of around 60%. There is concentric mild to moderate left ventricular hypertrophy. The mitral valve is seen and this opens adequately. There is mild to moderate mitral regurgitation. Left atrium is enlarged. The aortic valve is mildly sclerotic. The peak gradient across the aortic valve is 12 mm of Mercury. Color flow study across the aortic valve is demonstrated moderate aortic regurgitation. The aortic root appears to be normal. The right side chambers are normal. There is mild tricuspid regurgitation. The right ventricular systolic pressure of 34 mm of Mercury.
== END 2018-01-18 14:55 | disposition home or self-care (01) ==
LOC: ED 15:56 → MED SURG 18:53
PROVIDERS: ADMIT General Practice; ATTEND General Practice
DX: I63.031 Cerebral infarction due to thrombosis of right carotid artery (principal); I10 Essential (primary) hypertension; E11.9 Type 2 diabetes mellitus without complications
CPT/HCPCS: 36000; 36415; 70450; 70553; 72040; 80053; 81001; 82962; 85025; 85610; 85730; 93005; 93268; 93306; 93880; 94760; 97161; 99285; G0378; J1650; A9270-GY